=== PATIENT | female | born 1930 | race Caucasian/White ===

== ENCOUNTER 2020-02-23 09:39 | Day surgery (SDC) | payer MEDICARE, OTHER ==
[2020-02-16 12:18] LABS: CLARITY,URINE CLEAR (Clear); COLOR,URINE YELLOW (Yellow); GLUCOSE, URINE NEGATIVE (Neg); KETONES,URINE NEGATIVE (Neg); LEUKOCYTE ESTERASE ,URINE NEGATIVE (Neg); NITRITES, URINE NEGATIVE (Neg); OCCULT BLOOD,URINE NEGATIVE (Neg); PH,URINE 5.5 (4.8-8.0); PROTEIN,URINE NEGATIVE (Neg); UROBILINOGEN,URINE 0.2 E.U/dL (0.2-1.0)
[2020-02-16 12:29] LABS: BASOPHILS % (AUTO) 0.4 % (0-1); EOSINOPHILS # (AUTO) 0.2 X10'3 (0-0.9); EOSINOPHILS % (AUTO) 2.6 % (0-6); LYMPHOCYTES # (AUTO) 2.4 X10'3 (1.1-4.8); LYMPHOCYTES % (AUTO) 30.8 % (21-51); MEAN CORPUSCULAR HEMOGLOBIN 28.4 PG (27.0-31.0); MONOCYTES # (AUTO) 0.4 X10'3 (0-0.9); MONOCYTES % (AUTO) 5.6 % (2-12); NEUTROPHILS # (AUTO) 4.8 X10'3 (1.8-7.7); NEUTROPHILS % (AUTO) 60.6 % (42-75); PRE OP HEMATOCRIT 37.4 % (35.0-45.0); PRE OP HEMOGLOBIN 12.3 g/dL (12.0-16.0); PRE OP PLATELET COUNT 239 X10'3 (140-440); RED BLOOD COUNT 4.35 X10'6 (4.20-5.60); RED CELL DISTRIBUTION WIDTH 15.5 % (11.5-14.5)
[2020-02-16 12:31] LABS: ALBUMIN 3.4 G/DL (3.4-5.0); ALKALINE PHOSPHATASE 98 IU/L (46-116); BLOOD UREA NITROGEN 17 MG/DL (7-18); BUN/CREATININE RATIO 20.7 (6.6-38.0); CALCIUM 8.9 MG/DL (8.5-10.1); CHLORIDE 108 MMOL/L (99-107); CREATININE 0.82 MG/DL (0.40-0.90); PRE OP ALT 23 U/L (30-65); PRE OP AST 17 U/L (10-37); PRE OP BILIRUB, TOTAL 0.6 MG/DL (0.0-1.0); PRE OP GLUCOSE 102 MG/DL (70-104); PRE OP POTASSIUM 4.2 MMOL/L (3.4-5.1); PRE OP PROTIME 10.3 SECONDS (9.0-12.0); TOTAL CARBON DIOXIDE 29.3 MMOL/L (24-32); TOTAL PROTEIN 6.8 G/DL (6.4-8.2); eGFR 66 ML/MIN
[2020-02-16 12:35] LABS: UA COLLECTION TYPE CLN CATCH MIDSTREAM
[2020-02-16 12:46] LABS: PRE OP ANION GAP 5 (8-16); PRE OP SODIUM 142 MMOL/L (135-145)
[2020-02-23] VITALS (12 sets, daily range): BP systolic 109–133; BP diastolic 51–67
[~2020-02-23] VITALS: Ht 152.4 cm; Wt 66.3 kg
[~2020-02-23 09:39] MED LIST: DOCUMENT DATE & TIME OF BETA-BLOCKER PO ONE; ESOM40CA49 PO; LEVO100T PO; LISI10TA4 PO; NITR0.4T51 SL; SOTA80TA73 PO; ceFOXitin sod/dextrose 2g/50ml 50 ML IV ONE; famotidine 20mg tablet PO ONE; ringers solution, lacted 1,000 ML IV SCH
[2020-02-23] MEDS ORDERED: ATOR20TA PO (10:51)
[2020-02-23] MEDS ORDERED: meperidine/PF 25mg/ml syringe IV PRN ×3 (11:25)
[2020-02-23] MEDS ORDERED: morphine 2 MG/ML inj. syringe IV PRN (11:25)
[2020-02-23] MEDS ORDERED: ondansetron/PF 4mg/2ml inj IV PRN (11:25)
[2020-02-23] MEDS ORDERED: ringers solution, lacted 1,000 ML IV SCH (11:25)
[2020-02-23] MEDS ORDERED: morphine 4 MG/ML inj SYRINge IV PRN (11:25)
[2020-02-23] MEDS ORDERED: proCHLORperazine 10 MG/2 ml inj IV PRN (11:25)
[2020-02-23] MEDS ORDERED: midazolam 2 mg/2 ml injection ONE (13:30)
[2020-02-23] MEDS ORDERED: fentaNYL/PF 50MCG/1 ML 2ML syringe ONE (13:30)
[2020-02-23] MEDS ORDERED: propofol inj 20 ML IV ONE (13:59)
--- NOTE | 2020-02-23 15:52 | NUR ---
Pt discharged to vehicle without incident after IV removed and belongings returned to patient. Zuleima pad remains clean and dry no bleeding and patient states she has 0/10 pain. Anesthesia cleared patient for discharge stating her HR runs low since her prior PR, and 45-50 is normal for her. Pt verbalized understanding of all DC instructions. Pt requesting pain meds to take home but no script written. Calls have been made to Dr Armstrong's cell phone and her office, awaiting call back. Pt states she has no pain at this time and would prefer to go home and call for her follow up appointment before office hours are over, and ask again then about pain medicine. This was discussed again with daughter at vehicle who states "I really don't think she will need anything because surgery was so minimal, but if she still feels that way we will call the office later today". Otherwise pt is consenting to discharge and wants to go home before hearing back from the office.
== END 2020-02-23 15:52 | disposition home or self-care (01) ==
LOC: PAS 09:39
PROVIDERS: ATTEND Obstetrics & Gynecology
DX: N85.8 Other specified noninflammatory disorders of uterus (principal); I25.10 Atherosclerotic heart disease of native coronary artery without angina pectoris; I25.2 Old myocardial infarction; I48.91 Unspecified atrial fibrillation; E03.9 Hypothyroidism, unspecified; Z98.890 Other specified postprocedural states; Z11.59 Encounter for screening for other viral diseases; Z79.899 Other long term (current) drug therapy; Z82.49 Family history of ischemic heart disease and other diseases of the circulatory system; Z84.1 Family history of disorders of kidney and ureter; Z84.89 Family history of other specified conditions
CPT/HCPCS: 36415; 58120; 71046; 80053; 81003; 82948; 85025; 85610; 85730; 86870; 86885; 86900; 86901; 86905; 86922; 93005; J0694; J2175; J2250; J2704; J3010; U0003; 86902; 86920; A4618; A6258; J7120

== ENCOUNTER 2020-06-02 07:58 | Emergency (ER) | payer MEDICARE, OTHER ==
[~2020-06-02] VITALS: Ht 152.4 cm; Wt 71.4 kg
[~2020-06-02 07:58] MED LIST changes: +ATOR20TA PO; -DOCUMENT DATE & TIME OF BETA-BLOCKER PO ONE; -ceFOXitin sod/dextrose 2g/50ml 50 ML IV ONE; -famotidine 20mg tablet PO ONE; -ringers solution, lacted 1,000 ML IV SCH
[2020-06-02] MEDS ORDERED: methylPREDNISolone sod succ 125mg/2ml vial IV ONE (08:35)
[2020-06-02] MEDS ORDERED: PRED10TA23 PO (08:45)
[2020-06-02] MEDS ORDERED: DIPH28.33 TOP (08:46)
[2020-06-02 09:01] LABS: BASOPHILS % (AUTO) 0.3 % (0-1); EOSINOPHILS % (AUTO) 0.2 % (0-6); HEMATOCRIT 40.1 % (35.0-45.0); HEMOGLOBIN 13.2 g/dl (12.0-16.0); LYMPHOCYTES # (AUTO) 1.3 X10'3 (1.1-4.8); LYMPHOCYTES % (AUTO) 9.3 % (21-51); MEAN CORPUSCULAR HEMOGLOBIN 28.5 PG (27.0-31.0); MEAN CORPUSCULAR HGB CONC 32.8 g/dL (33.0-36.5); MEAN CORPUSCULAR VOLUME 86.7 FL (78-98); MONOCYTES # (AUTO) 0.4 X10'3 (0-0.9); MONOCYTES % (AUTO) 2.8 % (2-12); NEUTROPHILS # (AUTO) 12.5 X10'3 (1.8-7.7); NEUTROPHILS % (AUTO) 87.4 % (42-75); PLATELET COUNT 272 X10'3 (140-440); RED BLOOD COUNT 4.62 X10'6 (4.20-5.60); RED CELL DISTRIBUTION WIDTH 15.4 % (11.5-14.5); WHITE BLOOD COUNT 14.4 X10'3 (4.5-11.0)
[2020-06-02 09:16] LABS: ALANINE AMINOTRANSFERASE 26 U/L (12-78); ALKALINE PHOSPHATASE 102 IU/L (46-116); ANION GAP 8 (8-16); ASPARTATE AMINO TRANSFERASE 17 U/L (10-37); BILIRUBIN,TOTAL 0.5 MG/DL (0.1-1.0); BLOOD UREA NITROGEN 17 MG/DL (7-18); BUN/CREATININE RATIO 18.7 (6.6-38.0); CALCIUM 9.1 MG/DL (8.5-10.1); CHLORIDE 103 MMOL/L (99-107); CREATINE KINASE 97 U/L (26-192); CREATININE 0.91 MG/DL (0.40-0.90); GLUCOSE 128 MG/DL (70-104); POTASSIUM 3.9 MMOL/L (3.5-5.1); SODIUM 139 MMOL/L (135-145); TOTAL CARBON DIOXIDE 27.9 MMOL/L (24-32); TOTAL PROTEIN 7.9 G/DL (6.4-8.2); eGFR 58 ML/MIN
[2020-06-02] MEDS ORDERED: METO25TA6 PO (09:34)
[2020-06-02] MEDS ORDERED: diphenhydrAMINE 2%/zinc acetate cream TP STA (09:38)
[2020-06-02] MEDS ORDERED: methylPREDNISolone sod succ/PF 40mg inj. IV ONE (12:05)
[2020-06-02] MEDS ORDERED: diphenhydrAMINE 50 mg/ml inj IV ONE (12:05)
[2020-06-02 14:05] VITALS: BP 175/61
== END 2020-06-02 14:08 | disposition home or self-care (01) ==
LOC: ER 07:59
DX: R21 Rash and other nonspecific skin eruption (principal); T44.7X5A Adverse effect of beta-adrenoreceptor antagonists, initial encounter; K21.9 Gastro-esophageal reflux disease without esophagitis; Z88.8 Allergy status to other drugs, medicaments and biological substances; Z79.899 Other long term (current) drug therapy; Y92.89 Other specified places as the place of occurrence of the external cause
CPT/HCPCS: 36415; 80053; 82550; 85025; 93005; 96374; 96375; 96376; 99285; J1200; J2920; J2930

== ENCOUNTER 2021-08-29 12:36 | Emergency (ER) | payer MEDICARE ==
[~2021-08-29] VITALS: Ht 154.9 cm; Wt 142.0 kg
[~2021-08-29 12:36] MED LIST changes: -ATOR20TA PO; +DILT60TA41 PO; -LISI10TA4 PO; +RIVA20TA PO; -SOTA80TA73 PO
[2021-08-29 19:52] LABS: BASOPHILS % (AUTO) 0.4 % (0-1); EOSINOPHILS % (AUTO) 0.6 % (0-6); HEMATOCRIT 27.6 % (35.0-45.0); HEMOGLOBIN 8.7 g/dl (12.0-16.0); LYMPHOCYTES # (AUTO) 1.7 X10'3 (1.1-4.8); LYMPHOCYTES % (AUTO) 21.1 % (21-51); MEAN CORPUSCULAR HEMOGLOBIN 23.1 PG (27.0-31.0); MEAN CORPUSCULAR HGB CONC 31.4 g/dL (33.0-36.5); MEAN CORPUSCULAR VOLUME 73.8 FL (78-98); MEAN PLATELET VOLUME 7.8 FL (7.4-10.4); MONOCYTES # (AUTO) 0.5 X10'3 (0-0.9); MONOCYTES % (AUTO) 6.9 % (2-12); NEUTROPHILS # (AUTO) 5.6 X10'3 (1.8-7.7); PLATELET COUNT 307 X10'3 (140-440); RED BLOOD COUNT 3.75 X10'6 (4.20-5.60); RED CELL DISTRIBUTION WIDTH 18.2 % (11.5-14.5); WHITE BLOOD COUNT 7.8 X10'3 (4.5-11.0)
[2021-08-29 20:09] LABS: ALANINE AMINOTRANSFERASE 17 U/L (12-78); ALBUMIN 3.7 G/DL (3.4-5.0); ALKALINE PHOSPHATASE 83 IU/L (46-116); ANION GAP 14 (8-16); ASPARTATE AMINO TRANSFERASE 17 U/L (10-37); BILIRUBIN,TOTAL 0.4 MG/DL (0.1-1.0); BLOOD UREA NITROGEN 18 MG/DL (7-18); CALCIUM 9.2 MG/DL (8.5-10.1); CHLORIDE 105 MMOL/L (99-107); CREATININE 0.75 MG/DL (0.40-0.90); GLUCOSE 97 MG/DL (70-104); POTASSIUM 4.2 MMOL/L (3.5-5.1); SODIUM 142 MMOL/L (135-145); TOTAL CARBON DIOXIDE 22.9 MMOL/L (24-32); TOTAL PROTEIN 7.3 G/DL (6.4-8.2); eGFR 73 ML/MIN
--- NOTE | 2021-08-29 20:35 | NUR ---
advised patient to have family bring in her regular meds including BP meds. Patient took her night meds 2020 after family brought them in.
[2021-08-29] MEDS ORDERED: morphine 4 MG/ML inj SYRINge IV ONE ×2 (20:55→21:20)
[2021-08-29] MEDS ORDERED: ondansetron/PF 4mg/2ml inj IV ONE (20:55)
[2021-08-29] MEDS ORDERED: morphine 2 MG/ML inj. syringe IV ONE (21:15)
[2021-08-29] MEDS ORDERED: CYCL-1 PO (22:10)
[2021-08-29] MEDS ORDERED: cyclobenzaprine 10mg tablet PO ONE (22:10)
[2021-08-29] MEDS ORDERED: ACET-2615 PO (22:10)
[2021-08-29 22:14] VITALS: BP 140/49
== END 2021-08-29 22:36 | disposition home or self-care (01) ==
LOC: ER 12:37
DX: R06.02 Shortness of breath (principal); M54.6 Pain in thoracic spine; I25.2 Old myocardial infarction; I48.91 Unspecified atrial fibrillation; I25.10 Atherosclerotic heart disease of native coronary artery without angina pectoris; K21.9 Gastro-esophageal reflux disease without esophagitis; Z87.440 Personal history of urinary (tract) infections; Z88.8 Allergy status to other drugs, medicaments and biological substances; Z79.899 Other long term (current) drug therapy
CPT/HCPCS: 36415; 71045; 80053; 83880; 84484; 85025; 93005; 96374; 96375; 96376; 99285; J2270; J2405

== ENCOUNTER 2021-10-17 13:02 | Outpatient (CLI) | payer MEDICARE ==
[~2021-10-17 13:02] MED LIST changes: +CYCL-1 PO
[2021-10-17 13:45] LABS: BASOPHILS % (AUTO) 0.2 % (0-1); EOSINOPHILS # (AUTO) 0.1 X10'3 (0-0.9); EOSINOPHILS % (AUTO) 0.7 % (0-6); LYMPHOCYTES # (AUTO) 1.6 X10'3 (1.1-4.8); LYMPHOCYTES % (AUTO) 19.5 % (21-51); MEAN CORPUSCULAR HEMOGLOBIN 21.6 PG (27.0-31.0); MEAN CORPUSCULAR HGB CONC 30.3 g/dL (33.0-36.5); MEAN CORPUSCULAR VOLUME 71.3 FL (78-98); MEAN PLATELET VOLUME 8.3 FL (7.4-10.4); MONOCYTES # (AUTO) 0.4 X10'3 (0-0.9); MONOCYTES % (AUTO) 5.2 % (2-12); NEUTROPHILS # (AUTO) 6.2 X10'3 (1.8-7.7); NEUTROPHILS % (AUTO) 74.4 % (42-75); PLATELET COUNT 281 X10'3 (140-440); RED BLOOD COUNT 3.14 X10'6 (4.20-5.60); RED CELL DISTRIBUTION WIDTH 16.5 % (11.5-14.5); WHITE BLOOD COUNT 8.3 X10'3 (4.5-11.0)
[2021-10-17 14:09] LABS: HEMATOCRIT 22.4 % (35.0-45.0); HEMOGLOBIN 6.8 g/dl (12.0-16.0)
[2021-10-17] MEDS ORDERED: DEXA6TAB6 PO (22:36)
[2021-10-17] MEDS ORDERED: NIRM1TAB PO (22:37)
== END 2021-10-17 23:59 | disposition home or self-care (01) ==
LOC: LAB 13:02
PROVIDERS: ATTEND Nurse Practitioner
DX: I10 Essential (primary) hypertension (principal); K21.9 Gastro-esophageal reflux disease without esophagitis; I48.91 Unspecified atrial fibrillation; E03.9 Hypothyroidism, unspecified; K57.90 Diverticulosis of intestine, part unspecified, without perforation or abscess without bleeding; D51.8 Other vitamin B12 deficiency anemias; D51.3 Other dietary vitamin B12 deficiency anemia
CPT/HCPCS: 36415; 82607; 82746; 85025

== ENCOUNTER 2021-10-17 15:15 | Emergency (ER) | payer MEDICARE ==
[~2021-10-17] VITALS: Ht 154.9 cm; Wt 63.2 kg
[2021-10-17 16:36] LABS: BASOPHILS % (AUTO) 0.3 % (0-1); EOSINOPHILS # (AUTO) 0.1 X10'3 (0-0.9); EOSINOPHILS % (AUTO) 1.3 % (0-6); LYMPHOCYTES # (AUTO) 1.7 X10'3 (1.1-4.8); LYMPHOCYTES % (AUTO) 22.1 % (21-51); MEAN CORPUSCULAR HEMOGLOBIN 21.7 PG (27.0-31.0); MEAN CORPUSCULAR HGB CONC 30.4 g/dL (33.0-36.5); MEAN CORPUSCULAR VOLUME 71.4 FL (78-98); MONOCYTES # (AUTO) 0.4 X10'3 (0-0.9); NEUTROPHILS # (AUTO) 5.3 X10'3 (1.8-7.7); NEUTROPHILS % (AUTO) 71.3 % (42-75); PLATELET COUNT 284 X10'3 (140-440); RED BLOOD COUNT 3.12 X10'6 (4.20-5.60); RED CELL DISTRIBUTION WIDTH 16.3 % (11.5-14.5); WHITE BLOOD COUNT 7.5 X10'3 (4.5-11.0)
[2021-10-17 16:41] LABS: HEMOGLOBIN 6.8 g/dl (12.0-16.0)
[2021-10-17 16:42] LABS: HEMATOCRIT 22.3 % (35.0-45.0)
[2021-10-17 16:45] LABS: APTT 42 SECONDS (22-32)
[2021-10-17 16:49] LABS: ALANINE AMINOTRANSFERASE 15 U/L (12-78); ALBUMIN 3.3 G/DL (3.4-5.0); ANION GAP 11 (8-16); ASPARTATE AMINO TRANSFERASE 12 U/L (10-37); BILIRUBIN,TOTAL 0.2 MG/DL (0.1-1.0); BLOOD UREA NITROGEN 27 MG/DL (7-18); BUN/CREATININE RATIO 35.1 (6.6-38.0); CALCIUM 8.6 MG/DL (8.5-10.1); CHLORIDE 104 MMOL/L (99-107); CREATININE 0.77 MG/DL (0.40-0.90); GLUCOSE 97 MG/DL (70-104); POTASSIUM 3.7 MMOL/L (3.5-5.1); SODIUM 139 MMOL/L (135-145); TOTAL CARBON DIOXIDE 24.1 MMOL/L (24-32); TOTAL PROTEIN 6.7 G/DL (6.4-8.2); eGFR 71 ML/MIN
--- NOTE | 2021-10-17 18:02 | NUR ---
Call to blood bank for update on status of PRBC's ordered. Per blood bank patient has an antibody and they are working on getting the units ready.
[2021-10-17 19:29] VITALS: BP 164/60
[2021-10-17] MEDS ORDERED: dexamethasone sod phosphate 10mg/ml inj IV STA (20:46)
[2021-10-17] MEDS ORDERED: SOTROVIMAB 500mg injection 500 MG in normal saline 100ml IV soln 100 ML IV ONE (20:50)
[2021-10-17 20:59] VITALS: BP 165/68
--- NOTE | 2021-10-17 21:00 | NUR ---
PT HAS BEEN MONITORED FOR BLOOD TRANSFUSION AND RECEIVED FIRST UNIT OF BLOOD TOLERATING IT WELL, SECOND UNIT OF BLOOD IS BEING ADMINISTERED NOW.
[2021-10-17 21:12] LABS: CLARITY,URINE SLIGHTLY CLOUDY (Clear); GLUCOSE, URINE NEGATIVE (Neg); KETONES,URINE NEGATIVE (Neg); LEUKOCYTE ESTERASE ,URINE NEGATIVE (Neg); NITRITES, URINE POSITIVE (Neg); OCCULT BLOOD,URINE NEGATIVE (Neg); PROTEIN,URINE NEGATIVE (Neg); UROBILINOGEN,URINE 0.2 E.U/dL (0.2-1.0)
[2021-10-17 21:13] VITALS: BP 165/61
--- NOTE | 2021-10-17 21:13 | NUR ---
PT HAS BEEN ACCOMPANIED BY HER DAUGHTER СВЕТЛАНА. СВЕТЛАНА WAS APROVED TO BE PT'S POINT OF CONTACT FOR UPDATED INFORMATION. СВЕТЛАНА: [phone].
[2021-10-17 21:19] LABS: COLOR,URINE STRAW (Yellow); UA COLLECTION TYPE STRAIGHT CATH
[2021-10-17 21:22] LABS: BACTERIA,URINE 4+ /HPF (Neg); MUCUS STRANDS MODERATE /LPF (Neg); RBC,URINE 0-2 /HPF (0-2); SQUAMOUS EPITHELIAL CELL,UR FEW /LPF (FEW)
[2021-10-17] MEDS ORDERED: DEXA6TAB6 PO (22:36)
[2021-10-17] MEDS ORDERED: NIRM1TAB PO (22:37)
[2021-10-18 00:38] VITALS: BP 163/62
--- NOTE | 2021-10-21 09:25 | NUR ---
Called in prescription for Dr. Garrett Calixto to [facility] [address] per patient request for Keflex 500 mg 1 tab PO QID x7 days disp #28 with 0 refills.
== END 2021-10-18 00:41 | disposition home or self-care (01) ==
LOC: ER 15:16
DX: U07.1 COVID-19 (principal); D64.9 Anemia, unspecified; K21.9 Gastro-esophageal reflux disease without esophagitis; G89.29 Other chronic pain; Z87.440 Personal history of urinary (tract) infections; Z88.8 Allergy status to other drugs, medicaments and biological substances; Z79.899 Other long term (current) drug therapy
CPT/HCPCS: 36415; 36430; 80053; 81001; 85025; 85610; 85730; 86870; 86885; 86900; 86901; 86922; 87077; 87088; 87186; 87635; 93005; 96374; 99285; C9803; J1100; J3490; M0247; P9016; Q0247; 96365; 96375

== ENCOUNTER → 2021-11-21 | Outpatient (CLI) | payer MEDICARE ==
[~2021-11-21] MED LIST changes: +DEXA6TAB6 PO; +NIRM1TAB PO
== END | disposition home or self-care (01) ==
LOC: RAD 09:14
PROVIDERS: ATTEND Nurse Practitioner
DX: D64.9 Anemia, unspecified (principal)
CPT/HCPCS: 78278; A9560

== ENCOUNTER 2021-12-28 10:12 | Outpatient (CLI) | payer MEDICARE ==
[2021-12-28 10:44] LABS: BASOPHILS % (AUTO) 0.4 % (0-1); EOSINOPHILS # (AUTO) 0.1 X10'3 (0-0.9); EOSINOPHILS % (AUTO) 1.2 % (0-6); HEMATOCRIT 35.2 % (35.0-45.0); HEMOGLOBIN 11.7 g/dl (12.0-16.0); LYMPHOCYTES # (AUTO) 1.5 X10'3 (1.1-4.8); LYMPHOCYTES % (AUTO) 23.7 % (21-51); MEAN CORPUSCULAR HEMOGLOBIN 28.4 PG (27.0-31.0); MEAN CORPUSCULAR HGB CONC 33.1 g/dL (33.0-36.5); MEAN CORPUSCULAR VOLUME 85.9 FL (78-98); MEAN PLATELET VOLUME 7.3 FL (7.4-10.4); MONOCYTES # (AUTO) 0.4 X10'3 (0-0.9); MONOCYTES % (AUTO) 6.2 % (2-12); NEUTROPHILS # (AUTO) 4.2 X10'3 (1.8-7.7); NEUTROPHILS % (AUTO) 68.5 % (42-75); PLATELET COUNT 234 X10'3 (140-440); RED CELL DISTRIBUTION WIDTH 20.2 % (11.5-14.5); WHITE BLOOD COUNT 6.1 X10'3 (4.5-11.0)
[2021-12-28 11:08] LABS: ANISOCYTOSIS 3+; PLATELET ESTIMATE NORMAL
== END 2021-12-28 23:59 | disposition home or self-care (01) ==
LOC: LAB 10:12
PROVIDERS: ATTEND Nurse Practitioner
DX: D64.9 Anemia, unspecified (principal)
CPT/HCPCS: 36415; 85008; 85025

== ENCOUNTER 2022-01-27 13:10 | Outpatient (CLI) | payer MEDICARE ==
[2022-01-27 13:47] LABS: BASOPHILS % (AUTO) 0.1 % (0-1); EOSINOPHILS % (AUTO) 0.5 % (0-6); HEMOGLOBIN 12.4 g/dl (12.0-16.0); LYMPHOCYTES # (AUTO) 1.6 X10'3 (1.1-4.8); LYMPHOCYTES % (AUTO) 15.4 % (21-51); MEAN CORPUSCULAR HEMOGLOBIN 28.9 PG (27.0-31.0); MEAN CORPUSCULAR HGB CONC 32.5 g/dL (33.0-36.5); MEAN PLATELET VOLUME 7.6 FL (7.4-10.4); MONOCYTES # (AUTO) 0.6 X10'3 (0-0.9); MONOCYTES % (AUTO) 5.4 % (2-12); NEUTROPHILS # (AUTO) 8.4 X10'3 (1.8-7.7); NEUTROPHILS % (AUTO) 78.6 % (42-75); PLATELET COUNT 270 X10'3 (140-440); RED BLOOD COUNT 4.27 X10'6 (4.20-5.60); RED CELL DISTRIBUTION WIDTH 14.2 % (11.5-14.5); WHITE BLOOD COUNT 10.6 X10'3 (4.5-11.0)
== END 2022-01-27 23:59 | disposition home or self-care (01) ==
LOC: LAB 13:10
PROVIDERS: ATTEND Nurse Practitioner
DX: D64.9 Anemia, unspecified (principal)
CPT/HCPCS: 36415; 85025

== ENCOUNTER 2022-05-09 08:17 | Outpatient (CLI) | payer MEDICARE ==
[2022-05-09 08:44] LABS: BASOPHILS % (AUTO) 0.3 % (0-1); EOSINOPHILS # (AUTO) 0.1 X10'3 (0-0.9); EOSINOPHILS % (AUTO) 1.7 % (0-6); HEMATOCRIT 37.8 % (35.0-45.0); HEMOGLOBIN 12.9 g/dl (12.0-16.0); LYMPHOCYTES # (AUTO) 1.6 X10'3 (1.1-4.8); LYMPHOCYTES % (AUTO) 28.2 % (21-51); MEAN CORPUSCULAR HEMOGLOBIN 30.8 PG (27.0-31.0); MEAN CORPUSCULAR HGB CONC 34.1 g/dL (33.0-36.5); MEAN CORPUSCULAR VOLUME 90.4 FL (78-98); MEAN PLATELET VOLUME 7.5 FL (7.4-10.4); MONOCYTES # (AUTO) 0.3 X10'3 (0-0.9); NEUTROPHILS # (AUTO) 3.7 X10'3 (1.8-7.7); NEUTROPHILS % (AUTO) 64.8 % (42-75); PLATELET COUNT 227 X10'3 (140-440); RED BLOOD COUNT 4.18 X10'6 (4.20-5.60); RED CELL DISTRIBUTION WIDTH 13.8 % (11.5-14.5); WHITE BLOOD COUNT 5.7 X10'3 (4.5-11.0)
== END 2022-05-09 23:59 | disposition home or self-care (01) ==
LOC: LAB 08:17
PROVIDERS: ATTEND Nurse Practitioner
DX: D50.0 Iron deficiency anemia secondary to blood loss (chronic) (principal)
CPT/HCPCS: 36415; 82607; 82746; 85025